=== PATIENT | male | born 1965 | race African-American/Black ===

== ENCOUNTER 2023-04-05 18:14 | Emergency (ER) | payer SELFPAY ==
[2023-04-05] MEDS ORDERED: Acetaminophen 500 MG TAB ONE (18:53)
[2023-04-05 19:38] LABS: SARS-CoV-2 NAA Rapid Test Not Detected (NotDetected)
== END 2023-04-05 19:47 | disposition home or self-care (01) ==
LOC: ERS 18:14
DX: B34.9 Viral infection, unspecified (principal); E78.5 Hyperlipidemia, unspecified; I10 Essential (primary) hypertension; E11.9 Type 2 diabetes mellitus without complications; Z79.899 Other long term (current) drug therapy; Z79.84 Long term (current) use of oral hypoglycemic drugs
CPT/HCPCS: 87081; 87430; 99283

== ENCOUNTER 2023-04-11 15:50 | Emergency (ER) | payer SELFPAY ==
[2023-04-11 19:27] LABS: SARS-CoV-2 NAA Rapid Test Not Detected (NotDetected)
== END 2023-04-11 17:30 | disposition home or self-care (01) ==
LOC: ERS 15:50
DX: J06.9 Acute upper respiratory infection, unspecified (principal); R50.9 Fever, unspecified; I10 Essential (primary) hypertension; E78.5 Hyperlipidemia, unspecified; E11.9 Type 2 diabetes mellitus without complications; Z79.84 Long term (current) use of oral hypoglycemic drugs; Z79.899 Other long term (current) drug therapy; Z20.822 Contact with and (suspected) exposure to COVID-19
CPT/HCPCS: 99283